=== PATIENT | male | born 1950 | race Caucasian/White ===

== ENCOUNTER 2018-06-22 17:06 | Outpatient (REF) | payer MEDICARE, SELFPAY ==
[2018-06-22 20:32] LABS: Bacteria Few HPF (Negative); C & S Indicated? No; Casts Negative LPF (Negative); Crystals Rare Calcium Oxalate HPF (Negative); Epithelial Cells Rare HPF (Negative); Mucus Negative (Negative); Other Cells Negative (Negative); WBC Negative HPF (0-5)
== END 2018-06-22 17:26 ==
LOC: LBN 17:06
PROVIDERS: PCP Family Medicine; Visit Provider Family Medicine
DX: R30.0 Dysuria (principal)
CPT/HCPCS: 81015

== ENCOUNTER 2018-07-01 03:01 | Outpatient (CLI) | payer MEDICARE, SELFPAY ==
[2018-07-01 11:44] LABS: Bacteria Negative HPF (Negative); C & S Indicated? No; Casts Negative LPF (Negative); Crystals Negative HPF (Negative); Epithelial Cells Rare HPF (Negative); Mucus Negative (Negative); WBC Negative HPF (0-5)
[2018-07-01 14:44] LABS: Cholesterol 221 mg/dL (50-200); HDL Cholesterol 48 mg/dL (40-60); LDL CHOLESTEROL 165 mg/dL (<100); Triglyceride 78 mg/dL (30-150)
[2018-07-02 09:35] LABS: PSA, Screening 1.4 ng/ml (0-4.5)
== END 2018-07-01 03:21 ==
PROVIDERS: PCP Family Medicine; Visit Provider Family Medicine
DX: R30.0 Dysuria (principal); R31.29 Other microscopic hematuria; Z12.5 Encounter for screening for malignant neoplasm of prostate; E11.9 Type 2 diabetes mellitus without complications
CPT/HCPCS: 36415; 80061; 83721; 84153; 81015

== ENCOUNTER 2018-08-03 01:02 | Outpatient (CLI) | payer MEDICARE, SELFPAY ==
--- NOTE | 2018-08-03 07:32 | DI.CT_ITS ---
SYMPTOM/DIAGNOSIS: PERSISTENT MICROSCOPIC HEMATURIA, R31.[address]: CT scan of the abdomen and pelvis was performed prior to and following contrast administration. CT urography was performed. There are no priors for comparison. Findings: There is a 2 mm. non obstructing stone in the mid pole of the right kidney. No left nephrolithiasis is identified. No ureterolithiasis is seen. The urinary bladder is intact. No bladder stones are appreciated. There is a normal appendix present. The gallbladder is negative. Post contrast imaging was obtained following the uneventful administration of 100 cc's of Omnipaque 350 intravenously. Mild dependent atelectatic changes are seen in the lung bases. The liver is normal in size. There are two well circumscribed hypodense lesions, one in the right lobe and one in the left lobe, most suggestive of cysts. No suspicious hepatic masses are seen. The superior mesenteric, splenic and portal veins are all patent. The gallbladder is negative. There is no biliary ductal dilatation. The pancreas and peripancreatic soft tissues are unremarkable as are the spleen and adrenal glands. The kidneys show normal and symmetric enhancement. No evidence of a solid renal mass or obstruction is identified. There are bilateral renal cysts present. The reproductive organs are unremarkable. There is atherosclerosis of the abdominal aorta but no aneurysmal dilatation is seen. No significant abdominal or pelvic adenopathy, ascites or pneumoperitoneum is present. The bowel shows no evidence of obstruction or inflammation. There is a normal appendix. Degenerative changes are seen in the spine, particularly at the L 3-4 disc level. Delayed images of the renal collecting system were obtained. No filling defects are seen. The urinary bladder is intact. No filling defects are present in the urinary bladder. No evidence of hydronephrosis is seen. IMPRESSION: 1. Right nephrolithiasis. 2. No evidence of ureterolithiasis or obstructive uropathy. 3. Bilateral renal cysts. No evidence of a solid renal mass.
[2018-08-03 08:13] LABS: CREATININE 1.02 mg/dL (0.70-1.30)
[2018-08-03] MEDS: Omnipaque 350 MG/ML 100 ML BTL IJ (09:20)
== END 2018-08-03 01:22 ==
PROVIDERS: PCP Family Medicine; Visit Provider Family Medicine
DX: R31.29 Other microscopic hematuria (principal); N20.0 Calculus of kidney; N28.1 Cyst of kidney, acquired; Z13.89 Encounter for screening for other disorder
CPT/HCPCS: 36415; 74178; 82565; J3490

== ENCOUNTER → 2018-08-10 10:15 | Outpatient (BNVA) | payer MEDICARE, SELFPAY | PROVIDERS: PCP Family Medicine; Visit Provider Urology | DX: R31.29 Other microscopic hematuria (principal) | CPT/HCPCS: 99203; 99214 ==

== ENCOUNTER 2022-07-02 02:15 | Outpatient (CLI) | payer MEDICARE, SELFPAY ==
[2022-07-02 12:59] LABS: Calculated LDL 167 mg/dL (<100); Cholesterol 242 mg/dL (<200); HDL Cholesterol 60 mg/dL (40-60); Triglyceride 78 mg/dL (<150)
== END 2022-07-02 02:16 | disposition home or self-care (01) ==
LOC: LOS 02:15
PROVIDERS: PCP Family Medicine; Visit Provider Family Medicine
DX: E78.5 Hyperlipidemia, unspecified (principal)
CPT/HCPCS: 36415; 80061

== ENCOUNTER 2023-02-17 03:54 | Outpatient (CLI) | payer MEDICARE, SELFPAY ==
[2023-02-17 12:33] LABS: Calculated LDL 163 mg/dL (<100); Cholesterol 235 mg/dL (<200); Glucose 99 mg/dL (74-106); HDL Cholesterol 60 mg/dL (40-60); Triglyceride 63 mg/dL (<150)
[2023-02-18 13:54] LABS: Lab Add On Test DONE
[2023-02-18 14:10] LABS: ALT 26 U/L (16-63); AST 30 U/L (15-37)
== END 2023-02-17 03:55 | disposition home or self-care (01) ==
LOC: LOS 03:55
PROVIDERS: PCP Family Medicine; Visit Provider Family Medicine
DX: R73.9 Hyperglycemia, unspecified (principal); E78.5 Hyperlipidemia, unspecified
CPT/HCPCS: 36415; 80061; 82947; 84450; 84460

== ENCOUNTER 2023-09-28 05:40 | Outpatient (CLI) | payer MEDICARE, SELFPAY ==
[2023-09-28 12:58] LABS: Calculated LDL 111 mg/dL (<100); Cholesterol 182 mg/dL (<200); HDL Cholesterol 57 mg/dL (40-60); Triglyceride 70 mg/dL (<150)
== END 2023-09-28 05:41 | disposition home or self-care (01) ==
LOC: LOS 05:40
PROVIDERS: PCP Family Medicine; Visit Provider Family Medicine
DX: E78.5 Hyperlipidemia, unspecified (principal)
CPT/HCPCS: 36415; 80061